=== PATIENT | female | born 1960 | race Caucasian/White ===

== ENCOUNTER 2016-03-26 08:05 | Day surgery (SDC) | payer OTHER ==
[2016-03-22 13:25] VITALS: BMI 26.3
--- NOTE | 2016-03-25 09:47 | HP ---
Admitting History and Physical - Primary Care Physician PCP: Andrade Lindquist - Admission Chief Complaint: right breast cancer History of Present Illness: Patient is a 55 yo female noted to have a right breast 10 oclock mass on US. Patient had a right breast US core bx 03/08/2016 which was c/w invasive ductal ca ER weakly positive, NC and Her 2 negative. Patient had an MRI done which was c/w known cancer without evidence of multifocal or contralateral dz. Patient is now presenting for right WE, snbx, lympho, possible andx. History Source: Patient Limitations to Obtaining History: No Limitations - Past Medical History Cardiovascular: Yes: Hyperlipdemia, Other (aortic regurgitation) - Past Surgical History Past Surgical History: Yes: Colectomy (partial colon resection sec to perf diverticulitis 02/2015), Additional Past Surgical History: D and C left US core bx (2012) benign right cyst aspiration (2007) - Smoking History Smoking history: Former smoker Have you smoked in the past 12 months: Yes If you are a former smoker, when did you quit?: last week - Alcohol/Substance Use Hx Alcohol Use: No Home Medications - Allergies Allergies/Adverse Reactions: Allergies Allergy/AdvReac Type Severity Reaction Status Date / Time No Known Allergies Allergy Verified 03/22/16 13:13 - Home Medications Home Medications: Ambulatory Orders Multivitamins [Tab-A-Vit -] 1 tab PO DAILY 03/22/16 Ranitidine HCl [Zantac] 150 mg PO DAILY PRN 03/22/16 Rosuvastatin Calcium [Crestor] 5 mg PO DAILY 03/22/16 Ubidecarenone [Coq10] 200 mg PO DAILY 03/22/16 Vitamin B Complex [Super B-50 Complex] 1 each PO DAILY 03/22/16 Family Disease History - Family Disease History Family Disease History: CA: Father (lymphoma), Mother (basal and squamous cell) Other Family History: paternal cousin (breast cancer 60s) Review of Systems - Review of Systems Constitutional: reports: No Symptoms Cardiovascular: reports: No Symptoms Respiratory: reports: No Symptoms Physical Examination Breast(s): Yes: Other (No skin changes noted bilaterally. Patient withous suspicious masses or adenopathy noted bilaterally. Thickening noted in the right outer quad.) Problem List - Problems (1) Breast cancer, right Code(s): C50.911 - MALIGNANT NEOPLASM OF UNSP SITE OF RIGHT FEMALE BREAST Qualifiers: Breast location: upper outer quadrant of breast Patient gender: female Qualified Code(s): C50.411 - Malignant neoplasm of upper-outer quadrant of right female breast Assessment/Plan right breast WE with NL, snbx, lymphoscintogram, possible andx
[2016-03-26] MEDS ORDERED: ISOSULFAN BLUE 10 MG/ML VIAL SQ ONE (13:08)
[2016-03-26] MEDS ORDERED: LIDOCAINE 1%-EPI 1:100,000 30 ML MDV IJ ONE (13:08)
[2016-03-26] MEDS ORDERED: GUM MASTIC/STORAX/MSAL/ALCOHOL 1 DRP DROPSBTL MC ONE (13:08)
[2016-03-26] MEDS ORDERED: KETOROLAC TROMETHAMINE 30 MG/1 ML VIAL IVPUSH PRN (13:23)
[2016-03-26] MEDS ORDERED: ONDANSETRON 4 MG/2 ML VIAL IVPB PRN (13:23)
[2016-03-26] MEDS ORDERED: DEXTROSE 5%-0.45% SALINE 1,000 ML IV SCH (13:30)
[2016-03-26] MEDS ORDERED: MIDAZOLAM HCL 2 MG/2 ML SINGLE DOSE VIAL ONE (13:51)
[2016-03-26] MEDS ORDERED: PROPOFOL 20 ML ONE (14:01)
[2016-03-26] MEDS ORDERED: ceFAZolin SODIUM 1 GM VIAL ONE (14:05)
[2016-03-26] MEDS ORDERED: DEXAMETHASONE SOD PHOSPHATE 4 MG/1 ML VIAL ONE (14:05)
[2016-03-26] MEDS ORDERED: ONDANSETRON 4 MG/2 ML VIAL ONE ×2 (14:05→15:13)
[2016-03-26] MEDS ORDERED: KETOROLAC TROMETHAMINE 30 MG/1 ML VIAL ONE (15:13)
[2016-03-26] MEDS ORDERED: PROMETHAZINE HCL 25 MG/1 ML VIAL IVPUSH PRN (15:46)
[2016-03-26] MEDS ORDERED: ONDANSETRON 4 MG/2 ML VIAL IVPUSH PRN (15:46)
[2016-03-26] MEDS ORDERED: oxyCODONE HCL 5 MG TABLET PO PRN (15:46)
[2016-03-26] MEDS ORDERED: LACTATED RINGERS SOLUTION 1,000 ML IV SCH (16:00)
[2016-03-26 16:34] VITALS: TEMP 98.2
[2016-03-26 18:07] VITALS: BP 134/70; PULSE 72
--- NOTE | 2016-03-27 11:06 | OP ---
DATE OF OPERATION: 03/26/2016 PREOPERATIVE DIAGNOSIS: Right breast cancer, upper outer quadrant. POSTOPERATIVE DIAGNOSIS: Right breast cancer, upper outer quadrant. PROCEDURE: Right breast partial mastectomy with mammographic needle localization and right axillary sentinel lymph node biopsy with partial tissue transfer closure 4 x 3 cm. ANESTHESIA: General laryngeal mask anesthesia. PRIMARY SURGEON: Andrade Lindquist MD SERVOMECHANISM ASSEMBLER: BJORN Shannon COMPLICATIONS: There were no complications. DESCRIPTION OF PROCEDURE: Briefly, the patient is a 55-year-old G4, P3, postmenopausal white female of [place] and [place] descent. She has a family history of breast cancer with a paternal cousin with breast cancer in her 60s. Her father had lymphoma. Mother had skin cancer. The patient had mammography and ultrasound back in August 2015 with an ultrasound finding of a 10 o'clock density which was followed, and followup ultrasound February of 2016 showed the same 5- to 6-mm density, but there was vascularity. An ultrasound-guided core biopsy on March 08, 2016, showed a high-grade infiltrating ductal cancer which was ER weakly positive, DE negative, and HER-2/danial negative. The patient had an MRI showing localized cancer measuring about 1.2 cm in the 10 o'clock region of the right breast, and the patient was seen in consultation and advised on undergoing a wide excision with sentinel lymph node biopsy. The patient is brought in for the procedure on March 26, 2016. She first underwent a mammographic needle localization of the clip in the upper outer aspect of the right breast and a lymphoscintigraphy performed at [facility] prior to the procedure and was brought to the holding area at [facility]. In the holding area, site verification was made and informed consent was obtained. She was brought into the operating room and laid on the OR table in a supine position. Venodynes were placed on the lower extremities prior to induction, and she received a gram of Ancef prior to incision. The right breast was sterilely prepped and draped in the usual fashion with the wire prepped in the field. Next, 3 mL of Lymphazurin blue was injected intradermally and peritumorally around the needle localization site and massage was instituted. An incision was made just below the hair-bearing area of the right axilla and dissection was undertaken, and 2 hot nodes were easily found in the level 1 region of the right axilla. The first sentinel node had 10-second gamma count of 4088 and was blue. The second sentinel node had a 10-second gamma count of 7071 but had no blue dye. Background count after removal of these 2 nodes was 112, and no other blue or hot nodes were found. Both nodes had a grossly negative benign appearance, and clinically no other suspicious nodes were felt. Hemostasis was achieved and the axillary wound was closed using interrupted 2-0 plain suture, then interrupted 3-0 deep dermal Vicryl suture and a running 4-0 subcuticular Biosyn suture. At this time the wide excision was undertaken around the needle localization. A small ellipse of skin was removed with the wire. Dissection was undertaken around the needle localization all the way down to the pectoralis major muscle. The specimen was completely removed with the wire in the middle of the specimen and was oriented with a long lateral, short superior suture. Specimen radiograph showed removal of the clip in question. Hemostasis was achieved. Separate margins were then taken on the superior, inferior, medial, lateral, and deep aspects with sutures marking the biopsy cavity sides, and these were all sent separately to pathology as margins. At this point, hemostasis was achieved and the breast tissue was undermined and brought into the wound to create a 4 x 3-cm tissue transfer filling in the defect in the upper outer aspect of the right breast. The breast tissue was reapproximated using 2-0 plain suture. The skin was closed using interrupted 3-0 deep dermal Vicryl suture and a running 4-0 subcuticular Biosyn suture. Mastisol and Steri-Strips were applied over the wound, a compressive dressing placed over this. She was placed in a surgical bra postoperatively. The laryngeal mask air tube was removed at the end of the case. She did have 1% lidocaine injected into the wound at the end for postoperative pain control. The patient was awake and alert and brought to the postanesthesia care unit in stable condition. She will be discharged home the same day once discharge criteria are met. She is to follow up in the office in 1 week for formal wound pathology check. All sponge and needle counts were correct at the end of the case, and estimated blood loss was minimal. Jermaine [id number]
--- NOTE | 2016-03-29 15:13 | PATH ---
Surgical Pathology Report Patient Name: VESTA WERNER [facility]. Rec. #: [id number] /Age/Gender: 1960 (Age: 55) / F Account: [id number] Location: [facility] AMBULATORY Taken: 03/26/2016 Received: 03/26/2016 Reported: 03/29/2016 Physicians: Andrade Lindquist M.D. Specimen(s) Received A: RIGHT SENTINEL LYMPH NODE #1 B: RIGHT SENTINEL LYMPH NODE #2 C: RIGHT BREAST WIDE EXCISION D: RIGHT BREAST SUPERIOR MARGIN E: RIGHT BREAST MEDIAL MARGIN F: RIGHT BREAST LATERAL MARGIN G: RIGHT BREAST INFERIOR MARGIN H: RIGHT BREAST DEEP MARGIN Clinical History Wide excision: Invasive carcinoma Final Diagnosis A. LYMPH NODE, RIGHT SENTINEL #1, EXCISION: ONE LYMPH NODE, NEGATIVE FOR METASTATIC CARCINOMA (0/1). B. LYMPH NODE, RIGHT SENTINEL #2, EXCISION: ONE LYMPH NODE, NEGATIVE FOR METASTATIC CARCINOMA (0/1). C. BREAST, RIGHT, WIDE EXCISION: INVASIVE DUCTAL CARCINOMA, POORLY DIFFERENTIATED (TUBULE SCORE: 3/3, NUCLEAR GRADE: 3/3, MITOTIC SCORE: 3/3; TOTAL REYNA SCORE: 9/9) WITH ASSOCIATED NECROSIS AND CALCIFICATIONS, MEASURING 4 MM IN GREATEST DIMENSION, MICROSCOPICALLY. FOCAL DUCTAL CARCINOMA IN SITU (DCIS), SOLID TYPE, HIGH NUCLEAR GRADE IS PRESENT ADMIXED WITH INVASIVE CARICINOMA A MINOR COMPONENT. SURGICAL MARGINS ARE UNINVOLVED BY CARCINOMA; CARCINOMA IS AT 5 MM FROM THE CLOSEST (DEEP) MARGIN. SEE SPECIMENS D-H FINAL MARGINS. SKIN IS PRESENT AND IS UNINVOLVED BY CARCINOMA. NO LYMPHOVASCULAR INVASION IS IDENTIFIED. REMAINING BREAST TISSUE SHOWS PROLIFERATIVE FIBROCYSTIC CHANGES, RADIAL SCARS AND SCLEROSING ADENOSIS. PATHOLOGIC STAGE (pTNM): pT1a pN0. SEE ALSO BREAST CARCINOMA CASE SUMMARY BELOW. D. BREAST, RIGHT, SUPERIOR MARGIN, EXCISION: BENIGN BREAST TISSUE. E. BREAST, RIGHT, MEDIAL MARGIN, EXCISION: BENIGN BREAST TISSUE SHOWING RADIAL SCAR WITH ASSOCIATED CALCIFICATIONS. Note: Myoepithelial immunohistochemical markers (SMM-HC & p63) demonstrate the presence of myoepithelial cells in the radial scar. This finding supports the diagnosis. F. BREAST, RIGHT, LATERAL MARGIN, EXCISION: BENIGN BREAST TISSUE. G. BREAST, RIGHT, INFERIOR MARGIN, EXCISION: BENIGN BREAST TISSUE. H. BREAST, RIGHT, DEEP MARGIN, EXCISION: BENIGN FIBROADIPOSE TISSUE AND SKELETAL MUSCLE. Comments Breast Invasive Carcinoma: Surgical Pathology Cancer Case Summary Based on AJCC/UICC TNM, 7th edition Procedure _X_ Excision with image-guided localization Lymph Node Sampling _X_ Combs lymph node(s) Specimen Laterality _X_ Right Tumor Size: Size of Largest Invasive Carcinoma: 4 mm Tumor Focality _X_ Single focus of invasive carcinoma Macroscopic and Microscopic Extent of Tumor Skin _X_ Invasive carcinoma does not invade into the dermis or epidermis Nipple _X_ Not applicable (excisions less than total mastectomy) Ductal Carcinoma In Situ (DCIS) _X_ DCIS is present _X_ as a minor component (< 25% of tumor) Histologic Type of Invasive Carcinoma : _X_ Invasive carcinoma of no special type (ductal, not otherwise specified) Histologic Grade: (Reyna Histologic Score) Tubular Differentiation _X_ Score 3 Nuclear Pleomorphism _X_ Score 3 Mitotic Rate _X_ Score 3 Overall Grade _X_ Grade 3: scores of 8 or 9 (poorly differentiated) Margins _X_ Margins uninvolved by invasive carcinoma Distance from closest margin: 5 mm from deep margin in wide excision C. Final deep margin H is negative for carcinoma. _X_ Margins uninvolved by DCIS Distance from closest margin: 5 mm from deep margin in wide excision C. Final deep margin H is negative for DCIS. Lymph-Vascular Invasion _X_ Not identified Lymph Nodes Total number of lymph nodes examined (sentinel and nonsentinel): 2 Number of sentinel lymph nodes examined: 2 Number of lymph nodes with macrometastases ( > 2 mm): 0 Number of lymph nodes with micrometastases (>0.2 mm to 2 mm and/or >200cells):0 Number of lymph nodes with isolated tumor cells (=0.2 mm and =200 cells): 0 Extranodal Extension _X_ Not applicable Pathologic Staging (pTNM) Primary Tumor (Invasive Carcinoma): pT1a Regional Lymph Nodes (pN): pN0 (sn) Biomarker Studies Results of ER and NC studies performed on this specimen (block C2 )) at [facility] are as follows: ER (clone [id number] mouse monoclonal antibody by [employer]):0 % nuclear staining (Negative). NC (clone16 mouse monoclonal antibody by [employer]) : 0 % nuclear staining (Negative). Results of Her2 and Ki67 studies will be reported separately in an addendum. Positive and negative controls (internal if applicable) show appropriate results. Formalin fixation and cold ischemic times are within current ASCO/CAP recommendations for ER, NC and Her2 testing. Electronically Signed Juanita Kwok M.D. Addendum Reported: 04/01/2016 Addendum Diagnosis Results of Her2 (IHC) & Ki-67 studies performed on block C2 at [place], [place] ([id number]) are as follows: Her2 IHC (EP3 from [employer], formerly known as [id number], using [employer] Polymer Refine detection kit): 0 (Negative). Ki-67: ~90% (High). Positive and negative controls (internal if applicable) show appropriate results. Juanita Kwok M.D. Gross Description A. Received in formalin, labeled "right sentinel lymph node #1," is a 1.1 x 0.6 x 0.5 cm bautista blue, irregular lymph node with attached fat. The specimen is bisected and entirely submitted in one cassette. B. Received in formalin, labeled "right sentinel lymph node #2," is a 1.3 x 0.9 x 0.6 cm bautista, irregular lymph node with attached fat. The specimen is bisected and entirely submitted in one cassette. C. Received in formalin, labeled "right breast wide excision," is a 5.4 x 4.0 x 3.8 cm. bautista-yellow, irregular, portion of fibroadipose tissue with a needle localization wire present. There is a short suture marking the superior aspect and a long suture marking the lateral aspect, per the surgeon. The anterior surface displays a 2.5 x 0.5 cm bautista, elliptical, unremarkable portion of skin. The specimen is inked as follows: Superior blue; inferior green; lateral red; medial yellow; deep black. The specimen is serially sectioned from superior to inferior. Sectioning reveals a 0.8 x 0.6 x 0.5 cm bautista, firm mass at 0.5 cm from the deep margin. Additionally, the mass is at 1.0 cm from the medial margin. The remaining margins appear widely clear of the mass. The mass is surrounded by abundant dense, white, focally firm fibrous tissue. District Leader sections are submitted in 9 cassettes as follows: 3-7-whil-face sections of mass, each with deep margin; 2-2-ejewjliqdt fibrous tissue surrounding mass with medial and lateral margins; 6-8-qdjrvofato fibrous tissue surrounding mass with medial margin; 7-skin; 8-superior margin; 9-inferior margin. Time to formalin fixation: 4 minutes Total formalin fixation time: Approximately 27 hours. D. Received in formalin, labeled "right breast superior margin," is a 1.8 x 1.4 x 0.4 cm irregular portion of fibroadipose tissue with a suture marking the biopsy cavity side, per the surgeon. The new margin is inked green and the specimen is serially sectioned. The specimen is entirely submitted in 2 cassettes. E. Received in formalin, labeled "right breast medial margin," is a 1.8 x 1.5 x 0.3 cm irregular portion of fibroadipose tissue with a suture marking the biopsy cavity side, per the surgeon. The new margin is inked green and the specimen is serially sectioned. The specimen is entirely submitted in 2 cassettes F. Received in formalin, labeled "right breast lateral margin," is a 3.6 x 1.7 x 0.5 cm irregular portion of fibroadipose tissue with a suture marking the biopsy cavity side, per the surgeon. The new margin is inked green and the specimen is serially sectioned. The specimen is entirely submitted in 3 cassettes. G. Received in formalin, labeled "right breast inferior margin," is a 2.3 x 1.5 x 0.9 cm irregular portion of fibroadipose tissue with a suture marking the biopsy cavity side, per the surgeon. The new margin is inked green and the specimen is serially sectioned. The specimen is entirely submitted in 3 cassettes. H. Received in formalin, labeled "right breast deep margin," is a 2.0 x 1.3 x 0.4 cm irregular portion of fibroadipose tissue with a suture marking the biopsy cavity side, per the surgeon. The new margin is inked green and the specimen is serially sectioned. The specimen is entirely submitted in 2 cassettes. 03/27/201603/27/2016
== END 2016-03-26 17:45 | disposition home or self-care (01) ==
LOC: FASU 08:05
PROVIDERS: ATTEND Surgery Surgical Oncology
PROC: 0HBT0ZZ Excision of Right Breast, Open Approach (ICD-10-PCS; principal; 2016-03-26 14:19)
PROC: 07B50ZX Excision of Right Axillary Lymphatic, Open Approach, Diagnostic (ICD-10-PCS; 2016-03-26 14:19)
PROC: C71L1ZZ Planar Nuclear Medicine Imaging of Upper Chest Lymphatics using Technetium 99m (Tc-99m) (ICD-10-PCS; 2016-03-26 14:19)
DX: C50.411 Malignant neoplasm of upper-outer quadrant of right female breast (principal)
CPT/HCPCS: 19281; 78195-TC; 88307-TC; 88342-TC; 94760; A9541